=== PATIENT | female | born 1950 | race Caucasian/White ===

== ENCOUNTER → 2019-01-28 09:02 | Outpatient (CLI) | payer MEDICARE, OTHER, SELFPAY ==
--- NOTE | 2019-01-28 09:20 | RAD_ITS ---
PROCEDURE: Fluoroscopic guided left shoulder Injection DATE: January 28, 2019. INDICATION: Female, 68 years old. Chronic shoulder pain. PHYSICIAN: Suhas Hamm M.D. MEDICATIONS: 12 mg of betamethasone and 4 cc of 1% lidocaine. 2% lidocaine administered subcutaneously for local anesthesia. ACCESS SITE: Left shoulder. NEEDLE: 22-gauge spinal needle. FLUOROSCOPY TIME (if supplied): (1:17) minutes/seconds FINDINGS: The risks, benefits, and alternatives to the procedure were explained to the patient. The specific risks of bleeding, infection, and neurovascular injury were detailed and accepted. Witnessed informed consent was obtained. A 22-gauge spinal needle was positioned under fluoroscopic localization. Approximately 2 cc of Omnipaque Isovue-300 instilled for localization purposes. Medication was then injected. The patient tolerated the procedure well without any immediate complications. RAD/Inj/Asp Raulito Jt Should/Hip/Knee IMPRESSION: 1. Successful fluoroscopic guided left shoulder injection. Electronically Signed: Suhas Hamm, at 12:18 EDT , Service support ,
== END ==
PROVIDERS: Family Provider Preventive Medicine Occupational Medicine; PCP Preventive Medicine Occupational Medicine; Referring Provider Specialist; Visit Provider Specialist
DX: M75.02 Adhesive capsulitis of left shoulder (principal)
CPT/HCPCS: 20610; 77002; Q9967; J0702